=== PATIENT | female | born 1950 | race Caucasian/White ===

== ENCOUNTER 2016-10-29 05:33 | Inpatient (IN) | payer OTHER, MEDICAID ==
[~2016-10-29] VITALS: Ht 149.9 cm; Wt 48.5 kg
[2016-10-29 05:44] VITALS: BP 158/99
--- NOTE | 2016-10-29 05:44 | NUR ---
PATIENT PRESENTS TO ED WITH VOMITTING BIB GIS SOFTWARE DEVELOPER . PT STATES VOMITTING X4 DAYS . DENIES N/D; SKIN IS PINK/WARM/DRY; AAOX3, FORGETFUL WITH WHEELCHAIR, GENERALIZED WEAKNESS; LUNGS CLEAR BL; HR EVEN AND REGULAR; PT DENIES ANY FEVER, CP, SOB, OR COUGH AT THIS TIME; PATIENT STATES PAIN OF 0/10 AT THIS TIME; VSS; PATIENT POSITIONED FOR COMFORT; HOB ELEVATED; BEDRAILS UP X2; BED DOWN. ER MD MADE AWARE OF PT STATUS.
--- NOTE | 2016-10-29 05:55 | NUR ---
BIB WHEELCHAIR TO ER BED 3
--- NOTE | 2016-10-29 06:27 | NUR ---
Patient being evaluated by physician at bedside.
[2016-10-29] MEDS ORDERED: NACL 0.9% 500 ML IV ONE (06:30)
[2016-10-29] MEDS ORDERED: ONDANSETRON 4 MG/2 ML VIAL IVP ONE (06:30)
--- NOTE | 2016-10-29 07:20 | NUR ---
PER DR LAW ORDER MAY DO IN AND OUT FOR URINE COLLECTION.
--- NOTE | 2016-10-29 07:24 | NUR ---
REPORT GIVEN TO DAY NURSE, CHICHI FOR CONTINUITY OF CARE. PATIENT RESTING IN BED, CAREGIVER AT BEDSIDE. NO RESPIRATORY DISTRESS, SOB, OR DISCOMFORT. ALL NEEDS ATTENDED TO DURING SHIFT.
--- NOTE | 2016-10-29 07:26 | NUR ---
Patient being evaluated by DR LAW at bedside.
--- NOTE | 2016-10-29 07:37 | NUR ---
PT AA.PT WENT TO CT SCAN VIA [employer]/ [employer].
--- NOTE | 2016-10-29 07:44 | NUR ---
Major najera in [facility] - 10/29/16 at 0745 by RAYSA RESULT RELAYED TO MD LAW
--- NOTE | 2016-10-29 07:45 | NUR ---
RESULT OF URINE DIP STICK AND RELAYED TO MD LAW
--- NOTE | 2016-10-29 07:54 | NUR ---
PT BACK FROM CT SCAN. PT AA. NO ACUTE DISTRESS NOTED AT THIS TIME.
[2016-10-29] MEDS ORDERED: LEVOFLOXACIN 500 MG/D5W PREMIX 100 ML IV ONE (08:20)
--- NOTE | 2016-10-29 08:48 | NUR ---
DR LAW at bedside.
--- NOTE | 2016-10-29 09:02 | NUR ---
PT AAO.CAREGIVER AT BEDSIDE. PT AWARE WILL BE ADMITTED. IV LEVAQUIN ONGOING WELL TOLERATED. NOTED EDEMA ON BOTH FOOT 1+ NON PITTING.
--- NOTE | 2016-10-29 09:21 | NUR ---
CALLED REPORT TO THE FLOOR.NURSE ON BREAK. CHARGE NURSE ARNEL THOMPSON.
[2016-10-29] MEDS ORDERED: VITAMIN C500 M8 PO (09:23)
[2016-10-29] MEDS ORDERED: MAPAP500 M4 PO (09:23)
[2016-10-29] MEDS ORDERED: ENEMA READY-TO133 ML RC (09:23)
[2016-10-29] MEDS ORDERED: CENTRAL VITE F1 EACH PO (09:23)
[2016-10-29] MEDS ORDERED: LAXATIVE5 M1 PR (09:23)
[2016-10-29] MEDS ORDERED: FLUOXETINE60 MG PO (09:23)
[2016-10-29] MEDS ORDERED: DITROPAN5 MG PO (09:23)
[2016-10-29] MEDS ORDERED: [UNRECOGNIZED DRUG - OTHER] OT (09:23)
[2016-10-29] MEDS ORDERED: OYSTER SHELL C1 EAC2 PO (09:23)
[2016-10-29] MEDS ORDERED: MILK OF MA400 MG/5 M PO (09:23)
--- NOTE | 2016-10-29 09:40 | NUR ---
REPORT GIVEN TO ANIRUDH HAYES
[2016-10-29 09:50] VITALS: BP 144/86
--- NOTE | 2016-10-29 09:50 | NUR ---
PT ARRIVED FROM ER, AWAKE ALERT AND RESPONSIVE, NO SIGNS OF ACUTE DISTRESS. SKIN IS WARM AND DRY. WITH HX OF CEREBRAL PALSY, OFFLOAD TO PRESSURE AREAS. RECEIVED REPORT FROM ER. PT CAME FOR VOMITING AND UTI. NO EPISODE OF ANY NAUSEA OR VOMITING AT THIS TIME. PT DENIES OF ANY BURNING SENSATION UPON URINATION. PT IS AFEBRILE, DENIES OF ANY PAIN OR DISCOMFORT. ALL NEEDS ATTENDED. SAFETY PRECAUTIONS MAINTAINED. CALL LIGHT WITHIN REACH.
[2016-10-29 12:00] VITALS: BP 122/78
--- NOTE | 2016-10-29 12:37 | NUR ---
NEW ORDERS RECEIVED FROM Arina HARRISON NOTED AND CARRIED OUT.
[2016-10-29] MEDS: DEXT 5% / NACL 0.45% 1,000 ML IV SCH ×2 (14:20→22:34)
[2016-10-29 16:00] VITALS: BP 98/50
--- NOTE | 2016-10-29 17:53 | NUR ---
PT RESTING WELL IN BED, NO SIGNS OF ACUTE DISTRESS. NO EPISODE OF ANY NAUSEA OR VOMITING AT THIS TIME. DENIES OF ANY PAIN. CONTINUE TO MONITOR.
[2016-10-29] MEDS ORDERED: SODIUM PHOSPHATE 118 ML ENEM RC PRN (18:45)
[2016-10-29] MEDS ORDERED: ONDANSETRON 4 MG/2 ML VIAL IVP PRN (18:45)
[2016-10-29] MEDS ORDERED: ACETAMINOPHEN EXTRA STRENGTH 500 MG TAB PO PRN (18:45)
[2016-10-29] MEDS ORDERED: BISACODYL 10 MG SUPP RC PRN (18:45)
[2016-10-29] MEDS ORDERED: MAGNESIUM HYDROXIDE 2400 MG/30 ML UDC PO PRN (18:45)
[2016-10-29] MEDS ORDERED: LORazepam 2 MG/ML VIAL IVP PRN (18:45)
--- NOTE | 2016-10-29 18:51 | NUR ---
PT AWAKE AND RESPONSIVE, NO SIGNS OF ACUTE DISTRESS. ENDORSED TO ONCOMING HYDROLOGIC MODELER NURSE FOR CONTINUITY OF CARE.
--- NOTE | 2016-10-29 19:30 | NUR ---
ASSUMED CARE OF PATIENT, AWAKE, ALERT AND ORIENTED. NO COMPLAINS NOTED. CALL LIGHT WITHIN REACH.
--- NOTE | 2016-10-29 20:00 | NUR ---
VITAL SIGNS STABLE. AFEBRILE. NO COMPLAINS. PLAN OF CARE DISCUSSED WITH PATIENT, VERBALIZED UNDERSTANDING WELL. CALL LIGHT WITHIN REACH.
[2016-10-29 20:06] VITALS: BP 146/82
--- NOTE | 2016-10-29 20:30 | NUR ---
REPOSITIONED. PERICARE DONE BY HORSE BUYER. SCD APPLIED BLE.
--- NOTE | 2016-10-30 00:09 | NUR ---
BEDPAN IN USE. NO COMPLAINS. CALL LIGHT WITHIN REACH.
--- NOTE | 2016-10-30 04:05 | NUR ---
SLEEPING WELL. CALL LIGHT WITHIN REACH.
--- NOTE | 2016-10-30 07:11 | NUR ---
ENDORSED CARE AT BEDSIDE WITH KG ASTUDILLON. PATIENT IN STABLE CONDITION.
[2016-10-30 08:00] VITALS: BP 122/70
[2016-10-30] MEDS: FLUoxetine 20 MG CAP PO SCH (09:18)
[2016-10-30] MEDS: MULTIVITAMIN/MINERALS 1 TAB PO SCH (09:18)
[2016-10-30] MEDS: ASCORBIC ACID 500 MG TAB PO SCH (09:18)
[2016-10-30] MEDS: OXYBUTYNIN 5 MG TAB PO SCH (09:19)
[2016-10-30] MEDS: LEVOFLOXACIN 250 MG/D5 PREMIX 50 ML IV SCH (09:20)
[2016-10-30] MEDS: CALCIUM CARB/VIT-D 500 MG/200 IU 1 TAB PO SCH (09:22)
[2016-10-30] MEDS: DEXT 5% / NACL 0.45% 1,000 ML IV SCH ×2 (09:24→18:40)
--- NOTE | 2016-10-30 09:47 | NUR ---
PATIENT HAS BEEN SCREENED AND CATEGORIZED MODERATE NUTRITION RISK. PATIENT WILL BE SEEN WITHIN 3-5 DAYS OF ADMISSION. 10/31/16-11/02/[address]
[2016-10-30 12:00] VITALS: BP 140/63
--- NOTE | 2016-10-30 12:50 | NUR ---
DR. Hosea ANGLIN CAME, SEEN PT. AND CHECKED PT. CHART. WILL CHECK ORDERS.
--- NOTE | 2016-10-30 13:54 | NUR ---
PAGED JOSE M HARRISON REGARDING K 3.1. LEFT CALL BACK NUMBER.
[2016-10-30] MEDS ORDERED: POTASSIUM CHLORIDE 10 MEQ TABER PO SCH (14:39)
--- NOTE | 2016-10-30 16:15 | NUR ---
SEEN WATCHING TV AT THIS TIME. NO C/O PAIN. KEEP COMFORTABLE ON BED.
--- NOTE | 2016-10-30 18:15 | NUR ---
JOSE M HARRISON CAME, SEEN PT., CHECKED PT. CHART, AND PUT ORDERS ON UpTo.
--- NOTE | 2016-10-30 19:06 | NUR ---
BEDSIDE REPORT GIVEN TO WOODROW NATHAN -ANIRUDH. IVF INFUSING WELL. IN STABLE CONDITION.
--- NOTE | 2016-10-30 19:10 | NUR ---
RECEIVED REPORT FROM DAY SHIFT ROOMING HOUSE KEEPER AT BEDSIDE, PATIENT IS AAO X4 RESTING IN BED WATCHING TV. PATIENT IS ON ROOM AIR NO SOB NOTED, PATIENT HAS IV TO LEFT WRIST 22G WITH IVF INFUSING WELL. PATIENT IS ON BEDREST. PATIENT IS SLIGHTLY CONTRACTED IN THE ARMS FROM HISTORY OF CEREBRAL PALSY, PATIENT STILL ABLE TO MOVE AND PERFORM ADLS. DISCUSSED PLAN OF CARE WITH PATIENT, PATIENT VERBALIZED UNDERSTANDING. SAFETY MEASURES CHECKED, CALL LIGHT WITHIN REACH. WILL CONTINUE TO MONITOR.
[2016-10-30 20:00] VITALS: BP 126/72
[2016-10-30] MEDS: POTASSIUM CHLORIDE 20% 40 MEQ/15 ML UDC GT SCH (21:02)
--- NOTE | 2016-10-30 21:04 | NUR ---
PM MED ADMINISTERED, PATIENT TOLERATED WELL, CALL LIGHT WITHIN REACH. WILL CONTINUE TO MONITOR.
--- NOTE | 2016-10-30 22:23 | NUR ---
PATIENT SLEEPING, NO SOB OR SIGN OF DISTRESS, CALL LIGHT WITHIN REACH. WILL CONTINUE TO MONITOR.
--- NOTE | 2016-10-31 00:20 | NUR ---
PATIENT SLEEPING COMFORTABLE IN BED, NO SIGN OF DISTRESS, CALL LIGHT WITHIN REACH. WILL CONTINUE TO MONITOR.
--- NOTE | 2016-10-31 02:20 | NUR ---
PATIENT SLEEPING, NO SOB OR SIGN OF DISTRESS, CALL LIGHT WITHIN REACH. WILL CONTINUE TO MONITOR.
[2016-10-31 04:00] VITALS: BP 109/63
--- NOTE | 2016-10-31 04:17 | NUR ---
VITAL SIGNS STABLE, PATIENT WAS SLEEPING, NO SIGN OF DISTRESS, CALL LIGHT WITHIN REACH. WILL CONTINUE TO MONITOR.
[2016-10-31] MEDS: DEXT 5% / NACL 0.45% 1,000 ML IV SCH (05:19)
--- NOTE | 2016-10-31 07:15 | NUR ---
ENDORSED PATIENT TO DAY SHIFT RN AT BEDSIDE, PATIENT IN STABLE CONDITION.
--- NOTE | 2016-10-31 07:16 | NUR ---
RECEIVED REPORT FROM BOX SPRING UPHOLSTERER NURSE. PT IS AAOX4, DENIES PAIN/DISCOMFORT AT THIS TIME. IV IS PATENT AND INTACT. SKIN IS DRY AND INTACT. PT IS ON ROOM AIR, VITALS STABLE. SCD'S IN PLACE. CALL LIGHT WITHIN REACH. WILL CONTINUE TO MONITOR.
[2016-10-31 08:00] VITALS: BP 127/72
[2016-10-31] MEDS: ASCORBIC ACID 500 MG TAB PO SCH (08:32)
[2016-10-31] MEDS: POTASSIUM CHLORIDE 20% 40 MEQ/15 ML UDC GT SCH ×2 (08:32→20:22)
[2016-10-31] MEDS: CALCIUM CARB/VIT-D 500 MG/200 IU 1 TAB PO SCH (08:32)
[2016-10-31] MEDS: LEVOFLOXACIN 250 MG/D5 PREMIX 50 ML IV SCH (08:32)
[2016-10-31] MEDS: OXYBUTYNIN 5 MG TAB PO SCH (08:32)
[2016-10-31] MEDS: MULTIVITAMIN/MINERALS 1 TAB PO SCH (08:33)
[2016-10-31] MEDS: FLUoxetine 20 MG CAP PO SCH (08:33)
[2016-10-31] MEDS: SENNA 8.6 MG TAB PO SCH (08:33)
--- NOTE | 2016-10-31 08:39 | NUR ---
PT MICK MEDS WELL.
--- NOTE | 2016-10-31 11:37 | NUR ---
ALL NEEDS MET AT THIS TIME.
--- NOTE | 2016-10-31 14:09 | NUR ---
VITALS REMAIN STABLE. WILL CONTINUE TO MONITOR.
[2016-10-31 16:00] VITALS: BP 116/64
--- NOTE | 2016-10-31 16:44 | NUR ---
NO S/SX OF DISTRESS. WILL CONTINUE TO MONITOR.
--- NOTE | 2016-10-31 19:13 | NUR ---
ENDORSED TO MOPHEAD TRIMMER AND WRAPPER NURSE FOR CONTINUITY OF CARE IN STABLE CONDITION.
--- NOTE | 2016-10-31 19:15 | NUR ---
RECEIVED PT ON BED, AAOX4, DENIES ANY PAIN, NO SOB NOTED, VERBALIZED SHE WILL BE DISCHARGE TOMORROW, POC DISCUSSED, SAFETY MEASURES IN PLACE, REPOSITION Q2H AND OFFLOAD PRESSURE AREAS, CALL LIGHT WITHIN REACH.
--- NOTE | 2016-10-31 20:30 | NUR ---
DUE PO MEDICATION GIVEN, TOLERATED WELL, NO SIGNS OF N/V, ALL NEEDS ATTENDED.
--- NOTE | 2016-10-31 21:40 | NUR ---
VOIDED FREELY PER BEDPAN, KEPT SKIN CLEAN AND DRY, MONITORED CLOSELY.
[2016-11-01] VITALS: BP 114/68
--- NOTE | 2016-11-01 | NUR ---
PT SLEEPING, EASILY AROUSABLE, VITAL SIGNS STABLE, DENIES ANY PAIN, NO N/V NOTED, CONTINUE TO MONITOR CLOSELY.
--- NOTE | 2016-11-01 03:00 | NUR ---
ROUNDED ON PT, SEEN SLEEPING, NO SIGNS OF DISTRESS, SIDE RAILS UP AND BED ALARM, MONITORED CLOSELY.
--- NOTE | 2016-11-01 04:30 | NUR ---
AM CARE DONE, CONTINUE TO REPOSITION Q2H AND OFFLOAD PRESSURE AREAS.
--- NOTE | 2016-11-01 06:31 | NUR ---
NO BM FOR SEVERAL DAYS, OFFERED PT DULCOLAX SUPPOSITORY BUT PT REFUSED, SAID "IT WILL COME TODAY, I JUST STARTED EATING GOOD YESTERDAY", RISK AND BENEFITS EXPLAINED BUT PT INSIST "IT WILL COME", CHARGE NURSE KAY MADE AWARE.
--- NOTE | 2016-11-01 07:10 | NUR ---
PT AWAKE, NO SIGNS OF DISTRESS, REPORT GIVEN TO ANIRUDH MALDONADO FOR CONTINUITY OF CARE.
[2016-11-01 08:00] VITALS: BP 121/61
[2016-11-01] MEDS: POTASSIUM CHLORIDE 20% 40 MEQ/15 ML UDC GT SCH (08:48)
[2016-11-01] MEDS: ASCORBIC ACID 500 MG TAB PO SCH (08:49)
[2016-11-01] MEDS: MULTIVITAMIN/MINERALS 1 TAB PO SCH (08:49)
[2016-11-01] MEDS: FLUoxetine 20 MG CAP PO SCH (08:49)
[2016-11-01] MEDS: OXYBUTYNIN 5 MG TAB PO SCH (08:49)
[2016-11-01] MEDS: SENNA 8.6 MG TAB PO SCH (08:49)
[2016-11-01] MEDS: CALCIUM CARB/VIT-D 500 MG/200 IU 1 TAB PO SCH (08:50)
[2016-11-01] MEDS: LEVOFLOXACIN 250 MG/D5 PREMIX 50 ML IV SCH (08:56)
--- NOTE | 2016-11-01 08:57 | NUR ---
DUE MEDICATION GIVEN, PT TOLERATED WELL. PT CURRENTLY RESTING IN BED WATCHING TV, NO S/S OF DISTRESS OR DISCOMFORT NOTED. CALL LIGHT WITHIN REACH. WILL CONTINUE TO MONITOR.
--- NOTE | 2016-11-01 10:05 | NUR ---
CHECKED IN ON PT, PT CURRENTLY WATCHING TV, NO S/S OF RESPIRATORY DISTRESS NOTED, ALL NEEDS MET CALL LIGHT WITHIN REACH. WILL CONTINUE TO MONITOR.
--- NOTE | 2016-11-01 11:28 | NUR ---
11/01/16 RD INITIAL ASSESSMENT COMPLETED PLEASE REFER TO NUTRITION ASSESSMENT UNDER CARE ACTIVITY FOR ESTIMATED NUTRITIONAL NEEDS. RD RECOMMENDATIONS: 1. CONTINUE REGULAR DIET TOLERATED PER MD 2. ENCOURAGE INCREASED PO INTAKES 3. RD WILL F/U 3-5 DAYS; MODERATE RISK. JAVIER TAI, RD
--- NOTE | 2016-11-01 12:35 | NUR ---
PT CURRENTLY WATCHING TV. CALL LIGHT WITHIN REACH. WILL CONTINUE TO MONITOR.
--- NOTE | 2016-11-01 14:05 | NUR ---
CHECKED IN ON PT,PT CURRENTLY AWAKE, ALL NEEDS MET, CALL LIGHT WITHIN REACH. WILL CONTINUE TO MONITOR.
[2016-11-01] MEDS ORDERED: LEVAQUIN750 MG PO (15:21)
--- NOTE | 2016-11-01 15:31 | NUR ---
SPOKE WITH DR ALEIDA Vega RECEIVED D/C ORDER ,THAT PATIENT CAN GO HOME WITH ANTIBIOTICS . NOTIFIED PATIENT AND PATIENT PIE CRIMPING MACHINE OPERATOR INSPECTOR POISING TIME IS 1615. PROVIDE DR ALEIDA Vega PATIENT'S PHARMACY [facility] [phone] .
[2016-11-01 16:00] VITALS: BP 117/49
--- NOTE | 2016-11-01 16:30 | NUR ---
DISCUSSED DISCHARGE PLAN WITH PT AND PT CAREGIVER BOTH VERBALIZED UNDERSTANDING. ALL DISCHARGE PAPER WORK SIGNED BY PT, IV REMOVED TIP INTACT, DISCHARGE INSTRUCTIONS GIVEN, ID BANDS REMOVED. ALL PERSONAL BELONGINGS WITH PT.
--- NOTE | 2016-11-01 16:50 | NUR ---
PT WAS PICKED UP BY CAREGIVER AND WHEELED OUT TO [facility] IN STABLE CONDITION.
[2016-11-28] MEDS ORDERED: CARBAMIDE PEROXIDE 6.5% OT 15 ML BTL OT SCH (09:00)
== END 2016-11-01 16:50 | disposition home or self-care (01) | DRG 872 ==
LOC: MED 05:33 → MTU 09:38
PROVIDERS: ADMIT Preventive Medicine Preventive Medicine/Occupational Environmental Medicine; ATTEND Preventive Medicine Preventive Medicine/Occupational Environmental Medicine
DX: A41.9 Sepsis, unspecified organism (principal); N39.0 Urinary tract infection, site not specified; R73.9 Hyperglycemia, unspecified; K44.9 Diaphragmatic hernia without obstruction or gangrene; K40.90 Unilateral inguinal hernia, without obstruction or gangrene, not specified as recurrent; G80.9 Cerebral palsy, unspecified; M19.90 Unspecified osteoarthritis, unspecified site; D64.9 Anemia, unspecified; E87.5 Hyperkalemia; E83.52 Hypercalcemia; K29.00 Acute gastritis without bleeding; F79 Unspecified intellectual disabilities; B96.89 Other specified bacterial agents as the cause of diseases classified elsewhere; E73.9 Lactose intolerance, unspecified; Z88.0 Allergy status to penicillin; Z88.8 Allergy status to other drugs, medicaments and biological substances; Z86.718 Personal history of other venous thrombosis and embolism; Z87.81 Personal history of (healed) traumatic fracture